=== PATIENT | male | born 1965 | race Caucasian/White ===

== ENCOUNTER 2018-11-16 18:20 | Emergency (ER) | payer MEDICAID ==
[~2018-11-16] VITALS: Ht 188 cm; Wt 99.8 kg
[2018-11-16] MEDS ORDERED: CLINDAMYCIN 900MG IV 50 ML IV ONE (21:30)
[2018-11-16] MEDS ORDERED: SODIUM CHLORIDE 0.9% 1,000 ML IV ONE (21:30)
[2018-11-16 22:04] LABS: Basophils # (auto) 0.1 uL; Basophils % (auto) 0.9 % (0.0-2.0); Eosinophils # (auto) 0.3 uL; Eosinophils % (auto) 2.3 % (0.0-7.0); Hematocrit 44.4 % (41.0-53.0); Hemoglobin 14.8 g/dL (13.5-17.5); Lymphocytes # (auto) 1.9 uL; Lymphocytes % (auto) 14.6 % (10.0-50.0); Mean Corpuscular Hemoglobin 29.4 pg (28.0-32.0); Mean Corpuscular Hgb Conc. 33.4 g/dL (32.0-36.0); Mean Corpuscular Volume 88.1 fL (80.0-100.0); Monocytes # (auto) 1.7 uL; Monocytes % (auto) 12.9 % (0.0-12.0); Neutrophils % (auto) 69.3 % (37.0-80.0); Platelet Count (auto) 275 10^3/uL (140-450); Red Blood Cells 5.04 10^6/uL (4.5-5.90); Red Cell Distribution Width 13.4 % (11.8-14.3); White Blood Cell 12.9 10^3/uL (4.4-10.8)
[2018-11-16 22:19] LABS: Amylase 55 U/L (25-115); Lipase 149 U/L (73-393)
[2018-11-16 22:34] LABS: Albumin 3.4 g/dL (3.4-5.0); Calcium 8.5 mg/dL (8.5-10.1); Potassium 4.3 mmol/L (3.5-5.1)
[2018-11-16 22:39] LABS: BUN/Creatinine Ratio 9.2; Bilirubin, Total 0.4 mg/dL (0.2-1.0); Total Protein 7.5 g/dL (6.4-8.2)
[2018-11-16 23:52] VITALS: BP 143/90
== END 2018-11-16 23:55 | disposition home or self-care (01) ==
LOC: ER 18:20
DX: K02.9 Dental caries, unspecified (principal); J01.00 Acute maxillary sinusitis, unspecified; J32.2 Chronic ethmoidal sinusitis; L03.211 Cellulitis of face
CPT/HCPCS: 36415; 70486; 80053; 82150; 83605; 83690; 85025; 87040; 94761; 96365; 99284; J3490

== ENCOUNTER 2021-07-06 23:16 | Emergency (ER) | payer MEDICAID ==
[~2021-07-06] VITALS: Ht 188 cm; Wt 95.3 kg
[2021-07-06] MEDS ORDERED: SODIUM CHLORIDE 0.9% 1,000 ML IV ONE (23:30)
[2021-07-06 23:34] VITALS: BP 146/88
== END 2021-07-06 23:50 | disposition left against medical advice (07) ==
LOC: ER 23:16
DX: R10.31 Right lower quadrant pain (principal); Z53.21 Procedure and treatment not carried out due to patient leaving prior to being seen by health care provider
CPT/HCPCS: 93005